=== PATIENT | female | born 1985 | race African-American/Black ===

== ENCOUNTER 2020-04-18 09:40 | Emergency (ER) | payer BC ==
[~2020-04-18] VITALS: Ht 180.3 cm; Wt 97.1 kg
[2020-04-18 09:40] VITALS: BP_SYST 142
[2020-04-18 10:02] VITALS: BP_SYST 142
== END 2020-04-18 10:07 | disposition home or self-care (01) ==
LOC: SED 09:40
DX: F15.10 Other stimulant abuse, uncomplicated (principal); I10 Essential (primary) hypertension
CPT/HCPCS: 93005; 99283